=== PATIENT | female | born 1930 | race Caucasian/White ===

== ENCOUNTER → 2016-10-24 | Outpatient (CLI) | payer MEDICARE, OTHER ==
[~2016-10-24] MED LIST: ARMO150T5 PO; HYDR-2059 PO; LEVE100018 PO; LEVO100T87 PO; MEGE40TA17 PO; MIRT15TA5 PO; MULT1TAB6 PO; SERT-165 PO; VITA1TAB86 PO
== END | disposition home or self-care (01) ==
LOC: HKI 14:32
PROVIDERS: ATTEND Orthopaedic Surgery
DX: M25.562 Pain in left knee (principal); M17.12 Unilateral primary osteoarthritis, left knee; Z96.641 Presence of right artificial hip joint
CPT/HCPCS: 20610; G0463; J1030